=== PATIENT | female | born 1990 | race Caucasian/White ===

== ENCOUNTER 2018-09-16 20:16 | Inpatient (IN) ==
[2018-09-16] MEDS ORDERED: Sodium Chlor 0.9% Inj 500 ML IV.SIG PRN (23:02)
[2018-09-16] MEDS ORDERED: Sod Chloride 0.9% Inj 1,000 ML IV.CONT PRN (23:02)
[2018-09-16] MEDS ORDERED: fentaNYL Citrate Inj 100 MCG/2 ML Ampul IV.PUSH PRN (23:02)
[2018-09-16] MEDS ORDERED: Naloxone Inj 0.4 MG/ML Vial IV.PUSH PRN (23:02)
[2018-09-16] MEDS ORDERED: Oxytocin 30 Units/500ml Premix 30 UNITS/500 ML BAG IV.SIG ONE (23:02)
[2018-09-16] MEDS ORDERED: Citric Acid/Sodium Citrate Liq 30 ML UDC PO SCH (23:15)
[2018-09-16 23:16] LABS: Baso # (Auto) 0.1 th/mm3 (0.0-0.2); Baso % (Auto) 0.6 % (0.0-2.0); Eos % (Auto) 0.2 % (0.0-4.0); Hematocrit 38.3 % (35.0-46.0); Hemoglobin 12.8 gm/dL (11.6-15.3); Lymph # (Auto) 2.9 th/mm3 (1.0-4.8); Lymph % (Auto) 26.6 % (9.0-44.0); Mean Corpuscular HGB Conc 33.4 % (32.0-36.0); Mean Corpuscular Hemoglobin 28.8 pg (27.0-34.0); Mean Corpuscular Volume 86.4 fL (80.0-100.0); Mean Platelet Volume 9.6 fL (7.0-11.0); Mono # (Auto) 0.9 th/mm3 (0.0-0.9); Mono % (Auto) 8.2 % (0.0-8.0); Neut # (Auto) 7.1 th/mm3 (1.8-7.7); Neut % (Auto) 64.4 % (16.0-70.0); Platelet Count 228 th/mm3 (150-450); Red Blood Count 4.43 mil/mm3 (4.00-5.30); Red Cell Distribution Width 15.2 % (11.6-17.2)
--- NOTE | 2018-09-16 23:18 | P.HPOB ---
History of Present Illness Primary Care Physician: No Primary Care Physician Dr. Garo Segal Chief Complaint: Postdates induction History of Present Illness: Patient is a 28-year-old white female at 41 weeks tomorrow presents tonight for cervical ripening and induction for tomorrow for postdates. She denies any other complaints or problems. No bleeding, leakage, pain, records are available. NST is reactive and she is having occasional contraction tonight but not really feeling Weeks Gestation:: 41 Para: 0 : 3 Total # of Miscarriage(s): 1 Total # of Abortions (Spontaneous & Elective): 1 - Inpatient Certification I certify that the inpatient services were ordered in accordance with Medicare regulations governing the order. This includes certification that hospital inpatient services are reasonable and necessary and in the case of services not specified as inpatient-only under 42 CFR 419.22(n), that they are appropriately provided as inpatient services in accordance to with the 2-midnight benchmark under 43 CFR 412.3(e) Estimated Total Length of Stay (Days): 3 Plans for Post Hospital Care: Home Review of Systems All other systems reviewed negative except as stated in HPI PMFSH - Tobacco History Smoking Status: Smoker, status unknown Tobacco Type: Cigarettes - Alcohol History How Often Do You Have a Drink Containing Alcohol: Never - Substance Use History Substance History: No History of Abuse - Travel History History of Recent Travel: No Recent Travel in the [place] Within the Last 8 Weeks: No Recent Travel Out of the Country Within the Last 8 Weeks: No Medications and Allergies Active Medications: Active Medications Citric Acid/Sodium Citrate (Sodium Citrate/Citric Acid Liq) 30 ml PO TRANSCRIBING OPERATOR [facility] Stop: 09/20/18 23:14 Dinoprostone (Cervidil Vag Insert) 10 mg VAGINAL ONCE ONE Stop: 09/16/18 23:13 Fentanyl Citrate (Fentanyl Inj) 50 mcg IV.PUSH Q1H PRN PRN Reason: Pain Scale 3 - 5 Fentanyl Citrate (Fentanyl Inj) 100 mcg IV.PUSH Q1H PRN PRN Reason: PAIN SCALE 6 TO 10 Lactated Ringer's (Lr 1000 Ml Inj) 1,000 mls @ 3,000 mls/hr IV.SIG UNSCH PRN PRN Reason: compromise or epidural Lactated Ringer's (Lr 1000 Ml Inj) 1,000 mls @ 125 mls/hr IV.CONT .Q8H [facility] Sodium Chloride (Ns Inj) 500 mls @ 1,000 mls/hr IV.SIG UNSCH PRN PRN Reason: SEE LABEL COMMENTS Sodium Chloride (Ns Inj) 1,000 mls @ 100 mls/hr IV.CONT .Q10H PRN PRN Reason: SEE LABEL COMMENTS Oxytocin (Pitocin 30 Units/Ns 500 Ml Premix) 30 units in 500 mls @ 999 mls/hr IV.SIG BOLUS ONE Stop: 09/16/18 23:32 Lidocaine HCl (Xylocaine 1% Inj) 0.1 ml I-DERMAL PRN PRN PRN Reason: For IV start Stop: 09/19/18 23:01 Lidocaine HCl (Xylocaine 1% Inj) 10 ml INFILTRATN PRN PRN PRN Reason: For episiotomy repair Stop: 09/18/18 23:01 Mineral Oil (Muri-Lube Oil) 10 ml TOPICAL PRN PRN PRN Reason: PRN perineal massage Naloxone HCl (Narcan Inj) 0.1 mg IV.PUSH Q2M PRN PRN Reason: for opiate reversal Ondansetron HCl (Zofran Inj) 4 mg IV.PUSH Q6H PRN PRN Reason: NAUSEA OR VOMITING Sodium Chloride (Ns Flush) 2 ml IV.FLUSH BID MICHELLE Sodium Chloride (Ns Flush) 2 ml IV.FLUSH PRN PRN PRN Reason: FLUSH AFTER USING IV ACCESS Allergies Allergy/AdvReac Type Severity Reaction Status Date / Time No Known Allergies Allergy none Uncoded 09/16/18 23:12 Home Medications Medication Instructions Recorded Confirmed Type [id number] acid 1 tab PO DAILY 09/16/18 09/16/18 History [PreNata] Exam Vital signs: Vital Signs 09/16/18 22:15 Temperature 98.7 F Pulse Rate 71 Respiratory Rate 16 Blood Pressure 131/86 Intake & Output 09/16/18 09/16/18 09/17/18 06:59 18:59 06:59 Weight 57.153 kg Narrative: GENERAL: Well-nourished, well-developed patient. SKIN: Warm and dry. HEAD: Normocephalic and atraumatic. EYES: No scleral icterus. No injection or drainage. ENT: No nasal drainage noted. Mucous membranes pink. Airway patent. NECK: Supple, trachea midline. No JVD. CARDIOVASCULAR: Regular rate and rhythm without murmurs, gallops, or rubs. RESPIRATORY: Breath sounds equal bilaterally. No accessory muscle use. BREASTS: Bilateral exam showed no masses , no retractions, no nipple discharge. ABDOMEN/GI: Abdomen soft, non-tender, bowel sounds present, no rebound, no guarding Gravid to [40-] weeks size Fundal Height: [40-] GENITOURINARY: External Genitalia: intact and normal in appearance BUS glands: [-] Cervix: [-post] Dilatation: [1-2-] Effacement: [60-] Station: [-3] Presentation: [vtx-] Membranes: [intact ] Uterine Contractions: [occasional-] FHT's: Category: [1-] Baseline: [-133] Reactive: [-R] Variability: [-mod] Decels: [0-] EXTREMITIES: No cyanosis or edema. BACK: Nontender without obvious deformity. No CVA tenderness. NEUROLOGICAL: Awake and alert. Motor and sensory grossly within normal limits. Five out of 5 muscle strength in all muscle groups. Normal speech. Results - Labs CBC & Chem 7: 09/16/18 22:50 Caprini VTE Risk Assessment Caprini VTE Risk Assessment: No/Low Risk (score <= 1) Caprini Risk Assessment Model: Point Value = 1 Point Value = 2 Point Value = 3 Point Value = 5 Age 41-60 Minor surgery BMI > 25 kg/m2 Swollen legs Varicose veins or History of unexplained or recurrent spontaneous Oral contraceptives or hormone replacement Sepsis (< 1 month) Serious lung disease, including pneumonia (< 1 month) Abnormal pulmonary function Acute myocardial infarction Congestive heart failure (< 1 month) History of inflammatory bowel disease Medical patient at bed rest Age 61-74 Arthroscopic surgery Major open surgery (> 45 min) Laparoscopic surgery (> 45 min) Malignancy Confined to bed (> 72 hours) Immobilizing plaster cast Central venous access Age >= 75 History of VTE Family history of VTE Factor V Leiden Prothrombin [id number] Lupus anticoagulant Anticardiolipin antibodies Elevated serum homocysteine Heparin-induced thrombocytopenia Other congenital or acquired thrombophilia Stroke (< 1 month) Elective arthroplasty Hip, pelvis, or leg fracture Acute spinal cord injury (< 1 month) Prophylaxis Regimen: Total Risk Factor Score Risk Level Prophylaxis Regimen 0-1 Low Early ambulation 2 Moderate Order ONE of the following: *Sequential Compression Device (SCD) *Heparin 5000 units SQ BID 3-4 Higher Order ONE of the following medications: *Heparin 5000 units SQ TID *Enoxaparin/Lovenox 40 mg SQ daily (WT < 150 kg, CrCl > 30 mL/min) *Enoxaparin/Lovenox 30 mg SQ daily (WT < 150 kg, CrCl > 10-29 mL/min) *Enoxaparin/Lovenox 30 mg SQ BID (WT < 150 kg, CrCl > 30 mL/min) AND/OR *Sequential Compression Device (SCD) 5 or more Highest Order ONE of the following medications: *Heparin 5000 units SQ TID (Preferred with Epidurals) *Enoxaparin/Lovenox 40 mg SQ daily (WT < 150 kg, CrCl > 30 mL/min) *Enoxaparin/Lovenox 30 mg SQ daily (WT < 150 kg, CrCl > 10-29 mL/min) *Enoxaparin/Lovenox 30 mg SQ BID (WT < 150 kg, CrCl > 30 mL/min) AND *Sequential Compression Device (SCD) Assessment and Plan - Diagnosis (1) 41 weeks gestation of Code(s): Z3A.41 - 41 weeks gestation of Status: Acute (2) Post-dates Code(s): O48.0 - Post-term Status: Acute - Plan This primiparous patients 41 weeks tomorrow presents for postdates induction after cervical ripening tonight. NST is reactive and not contractions are noted to be regular anyway and she is in good condition and ready for induction. Cervix is 1-2 cm/60/-3/vertex. Plan to insert Cervidil the night and then tomorrow remove that and AROM with Pitocin
[2018-09-16 23:26] LABS: Bilirubin,Urine Negative (Negative); Clarity,Urine Clear (Clear); Color,Urine Straw (Yellw/Straw); Glucose,Urine (UA) Negative (Negative); Leukocyte Esterase,Urine Negative (Negative); Nitrite,Urine Negative (Negative); Specific Gravity,Urine 1.006 (1.002-1.035); Squamous Epithelial Cell,Urine 2 /hpf (0-5)
[2018-09-16 23:31] LABS: Amphetamine Urine With Conf Neg (Neg); Benzodiazepine Urine With Conf Neg (Neg)
[2018-09-17] MEDS: fentaNYL Citrate Inj 100 MCG/2 ML Ampul IV.PUSH PRN ×2 (02:53→04:20)
[2018-09-17] MEDS ORDERED: fentaNYL 2MCG-Bupiv 0.125% Epi 150 ML EPIDURAL ONE (04:30)
[2018-09-17] MEDS ORDERED: Lidocaaine 1.5%/Epinephrine 1:200,000 PF Inj 5 ML Amp ONE (04:31)
[2018-09-17] MEDS ORDERED: Lidocaine PF 1% Inj 5 ML Vial ONE (04:31)
[2018-09-17] MEDS ORDERED: fentaNYL Citrate Inj 100 MCG/2 ML Ampul EPIDURAL ONE (08:37)
[2018-09-17] MEDS ORDERED: fentaNYL 2MCG-Bupiv 0.125% Epi 150 ML EPIDURAL PRN (08:37)
[2018-09-17] MEDS ORDERED: Oxytocin 30 Units/500ml Premix 30 UNITS/500 ML BAG ONE (12:49)
--- NOTE | 2018-09-17 13:52 | P.OBLABOR ---
Subjective Interval history: As of this morning patient was feeling well with no new complaints. Epidural is in place. She is feeling significant pressure with her contractions. Objective Vital Signs: Vital Signs - 8 hr 09/17/18 05:55 09/17/18 06:05 09/17/18 06:20 Temperature Pulse Rate 82 73 71 Respiratory Rate Blood Pressure 107/63 104/59 L 100/53 L 09/17/18 06:30 09/17/18 06:55 09/17/18 07:00 Temperature Pulse Rate 74 69 73 Respiratory Rate Blood Pressure 105/58 L 98/52 L 100/54 L 09/17/18 07:05 09/17/18 07:40 09/17/18 07:45 Temperature 98.7 F Pulse Rate 87 80 80 Respiratory Rate 17 Blood Pressure 117/76 125/79 09/17/18 07:50 09/17/18 08:10 09/17/18 08:25 Temperature Pulse Rate 73 72 93 H Respiratory Rate Blood Pressure 111/75 127/84 09/17/18 08:40 09/17/18 09:00 09/17/18 09:20 Temperature Pulse Rate 81 75 Respiratory Rate 18 Blood Pressure 130/91 H 113/78 09/17/18 09:25 09/17/18 09:29 09/17/18 09:35 Temperature Pulse Rate 78 70 Respiratory Rate 17 Blood Pressure 107/67 09/17/18 09:40 09/17/18 09:50 09/17/18 09:55 Temperature 98.0 F Pulse Rate 74 75 81 Respiratory Rate 18 Blood Pressure 113/66 107/61 09/17/18 10:16 09/17/18 10:25 09/17/18 10:27 Temperature Pulse Rate 72 68 Respiratory Rate 17 Blood Pressure 97/59 L 09/17/18 10:50 09/17/18 11:40 09/17/18 12:15 Temperature Pulse Rate 75 90 63 Respiratory Rate 17 Blood Pressure 115/64 138/91 H 102/60 09/17/18 12:40 09/17/18 12:53 09/17/18 12:55 Temperature Pulse Rate 63 72 70 Respiratory Rate 18 Blood Pressure 102/58 L 132/78 09/17/18 13:25 09/17/18 13:50 Temperature Pulse Rate 63 68 Respiratory Rate Blood Pressure 128/80 109/85 Objective: Pelvic Exam: Dilatation: 5 Effacement: 90 Station: -1 Presentation: OP Membranes: ruptured Uterine Contractions: q3 minutes FHT's: Category: 2 Baseline: about 130 Reactive: little Variability: moderate Decels: recurrent variable with some late and early Assessment and Plan - Plan Labor progress: -AROM around 0800 today with IUPC placement - scalp electrode placed around 1345 -As of 1350 she had received amnioinfusion, LR bolus, repositioning and oxygen via non-rebreather with little improvement in FHTs. -Her decelerations have a slow return to baseline -There is significant concern about the severity of her current FHT -Will continue to monitor closely
[2018-09-17] MEDS ORDERED: ceFAZolin 2 GM Premix Inj 2 GM/100 ML BAG IV.SIG PRN (14:14)
[2018-09-17] MEDS ORDERED: Citric Acid/Sodium Citrate Liq 30 ML UDC PO SCH (14:15)
[2018-09-17] MEDS ORDERED: Ketorolac Inj 30 MG/ML (IVP) Vial IV.PUSH ONE (14:16)
[2018-09-17] MEDS ORDERED: Phenylephrine/NS 1000 MCG/10ML Syringe IV.PUSH ONE (14:16)
[2018-09-17] MEDS ORDERED: Lidocaine 2%/Epinephrine 1:200,000 PF Inj 20 ML Vial INFILTRATN ONE (14:16)
--- NOTE | 2018-09-17 14:18 | P.OBLABOR ---
Subjective Interval history: Pt with recurrent decels ranging from early to variable to late. RNs stated pt was 9-10cm. On exam, she is 4-5cm/90/+1. OP presentation. Unable to rotate fetus. Intolerance despite repositioning, O2, and amnioinfusion. R/B/A of were discussed with the patient. Specifically we reviewed risks of bleeding, infection, pain, injury to baby or internal organs/nerves/ vessels/structures. She voiced understanding, all questions were answered, and consents were signed. Orders have been placed, bicitra and antibiotics administered, SCDs and curtis placed, and RN/ANES/NICU/Charge notified. Objective Vital Signs: Vital Signs - 8 hr 09/17/18 06:20 09/17/18 06:30 09/17/18 06:55 Temperature Pulse Rate 71 74 69 Respiratory Rate Blood Pressure 100/53 L 105/58 L 98/52 L 09/17/18 07:00 09/17/18 07:05 09/17/18 07:40 Temperature Pulse Rate 73 87 80 Respiratory Rate Blood Pressure 100/54 L 117/76 09/17/18 07:45 09/17/18 07:50 09/17/18 08:10 Temperature 98.7 F Pulse Rate 80 73 72 Respiratory Rate 17 Blood Pressure 125/79 111/75 09/17/18 08:25 09/17/18 08:40 09/17/18 09:00 Temperature Pulse Rate 93 H 81 Respiratory Rate 18 Blood Pressure 127/84 130/91 H 09/17/18 09:20 09/17/18 09:25 09/17/18 09:29 Temperature Pulse Rate 75 78 Respiratory Rate 17 Blood Pressure 113/78 09/17/18 09:35 09/17/18 09:40 09/17/18 09:50 Temperature Pulse Rate 70 74 75 Respiratory Rate Blood Pressure 107/67 113/66 09/17/18 09:55 09/17/18 10:16 09/17/18 10:25 Temperature 98.0 F Pulse Rate 81 72 68 Respiratory Rate 18 Blood Pressure 107/61 97/59 L 09/17/18 10:27 09/17/18 10:50 09/17/18 11:40 Temperature Pulse Rate 75 90 Respiratory Rate 17 Blood Pressure 115/64 138/91 H 09/17/18 12:15 09/17/18 12:40 09/17/18 12:53 Temperature Pulse Rate 63 63 72 Respiratory Rate 17 18 Blood Pressure 102/60 102/58 L 132/78 09/17/18 12:55 09/17/18 13:25 09/17/18 13:50 Temperature Pulse Rate 70 63 68 Respiratory Rate Blood Pressure 128/80 109/85 09/17/18 13:55 09/17/18 14:05 Temperature Pulse Rate 59 L 64 Respiratory Rate Blood Pressure 129/87 Objective: Pelvic Exam: Cervix: [-] Dilatation: [-] Effacement: [-] Station: [-] Presentation: [-] Membranes: [intact or ruptured] Uterine Contractions: [-] FHT's: Category: [-] Baseline: [-] Reactive: [-] Variability: [-] Decels: [-] Assessment and Plan - Diagnosis (1) 41 weeks gestation of Code(s): Z3A.41 - 41 weeks gestation of Status: Acute (2) Post-dates Code(s): O48.0 - Post-term Status: Acute - Plan This primiparous patients 41 weeks tomorrow presents for postdates induction after cervical ripening tonight. NST is reactive and not contractions are noted to be regular anyway and she is in good condition and ready for induction. Cervix is 1-2 cm/60/-3/vertex. Plan to insert Cervidil the night and then tomorrow remove that and AROM with Pitocin
[2018-09-17] MEDS ORDERED: Morphine Sulfate PF Inj 5 MG/10 ML Ampul ONE (14:39)
[2018-09-17 14:46] LABS: Cord Arterial Blood HCO3 23.6
[2018-09-17] MEDS ORDERED: Oxytocin 30 Units/500ml Premix 30 UNITS/500 ML BAG IV.SIG ONE (15:39)
[2018-09-17] MEDS ORDERED: Simethicone 80 MG Chew Tablet PO PRN (15:39)
--- NOTE | 2018-09-17 15:58 | XR ---
EXAM DATE: 09/17/2018 2:29 PM EDT AGE/SEX: 28 years / Female INDICATIONS: Instrument count, emergency . CLINICAL DATA: This is the patient's initial encounter. Patient reports that signs and symptoms have been present for 1 day and indicates a pain score of Nonresponsive. MEDICAL/SURGICAL HISTORY: Non-responsive. Non-responsive. COMPARISON: No prior exams available for comparison. FINDINGS: Examination of the abdomen demonstrates gas-filled loops of nondilated large and small bowel. There i s a suggestion of displacement of bowel loops out of the pelvis. No free air is identified. No organ omegaly is evident. Osseous structures are intact. CONCLUSION: Gas-filled loops of nondilated large and small bowel. There is the suggestion of displacement of carlos l loops out of the pelvis concerning for possible mass. CT scan suggested. Electronically signed by: Garrick Wymna MD 09/17/2018 3:57 PM EDT
[2018-09-17] MEDS ORDERED: ceFAZolin Inj 2,000 MG in Sodium Chlor 0.9% Inj 80 ML IV.SIG SCH (16:00)
--- NOTE | 2018-09-17 16:06 | P.OP ---
- Preoperative Diagnosis (1) Non-reassuring electronic monitoring tracing (2) 41 weeks gestation of (3) Post-dates - Postoperative Diagnosis (1) 41 weeks gestation of (2) Post-dates (3) Non-reassuring electronic monitoring tracing Date of procedure: 09/17/18 Procedure: 1' LTCS MICKI Anesthesia: epidural Surgeon: Kiera Mojica MD Estimated blood loss (mL): 200 IV fluids (mL): 1,000 Urine output (mL): 250 Pathology: other Operation and Findings: Antibiotics: 2g ancef prior to skin incision DVT prophylaxis: SCDs were in place and active throughout the entire procedure EBL: 200cc IVF: 1000cc UOP: 250cc Drain(s): Reyes to straight drain Specimen(s): cord blood, cord gas, uterine adhesions Findings: HR in OR 90s, vtx male delivered at 14:26, 9/9 APGARs, wt 6lbs 14oz, pH (venous) 7.380; filmy adhesions covering uterus/ovaries/adnexa, omental adhesions to R ovary; normal appendix Complications: superficial laceration to L presybeterian of baby Disposition: to PACU in stable condition Indication: 28y/o @ 41.0wks with NRFHTs remote from delivery, refractory to intervention. Technique: The R/B/A were discussed with the pt, all questions answered, and consents signed. The pt was taken to the operating room where epidural anesthesia was found to be adequate. She was splashed with betadine and draped in the normal sterile fashion in the dorsal supine position with leftward tilt. A Pfannenstiel skin incision was made with the scalpel and carried through to the underlying layer of fascia. The fascia was incised in the midline and the incision extended bluntly. The rectus muscles were in the midline, and the peritoneum identified and entered bluntly. The peritoneal incision was stretched with good visualization of the bladder. The bladder blade was inserted and the vesicouterine peritoneum identified, grasped with pick-ups, and entered sharply with Metzenbaum scissors. This incision was extended laterally and a bladder flap created digitally. The bladder blade was then reinserted and the lower uterine segment incised in a transverse fashion with the scalpel. The uterine incision was stretched superiorly and inferiorly. The bladder blade was removed and the infant's head delivered atraumatically followed by the body. Delayed cord clamping ensued for 45sec while the was dried, suctioned, and stimulated. The cord was double clamped and cut and infant handed off to the waiting team. The placenta expelled with manual fundal massage. The uterus was exteriorized and cleared of all clots and debris. The uterine incision was repaired with 0- vicryl in a running, locked fashion. A second layer using 0-monocryl suture was used to obtain excellent hemostasis via embrication. Filmy adhesions were removed from the ovaries/uterus and samples sent to pathology. A suspected R endometrioma encapsulating the fimbria was drained and fimbriolysis performed. Omental adhesions were released and free tied for hemostasis. The posterior cul-de-sac was suctioned and the uterus was returned to the abdomen. The gutters were cleared of all clots and debris. The peritoneum was reapproximated with 3-0 vicryl in a running fashion. The underneath fascia was inspected and found to be hemostatic. The fascia was closed with 0-vicryl in a running fashion. The subcutaneous tissue was irrigated with saline and made hemostatic with the Bovie. The subcutaneous layer was reapproximated with plain gut with simple interrupted stitches. At this point, given the emergent nature of the procedure and the lack of preoperative instrument counts, an xray was performed. Once deemed negative, the skin was closed with 4-0 monocryl. Steristrips were placed and the incision dressed appropriately. The patient tolerated the procedure well. She was taken to the recovery room in stable condition. Both the patient and FOB were debriefed on the case. Decision to incision time: 12 minutes
[2018-09-17] MEDS ORDERED: Naloxone Inj 0.4 MG/ML Vial IV.PUSH PRN (16:53)
[2018-09-17] MEDS ORDERED: Oxytocin 30 Units/500ml Premix 30 UNITS/500 ML BAG IV.SIG PRN (20:39)
[2018-09-17] MEDS: ceFAZolin 2 GM Premix Inj 2 GM/50 ML PIGGYBACK IV.SIG SCH (22:29)
[2018-09-18] MEDS: ceFAZolin 2 GM Premix Inj 2 GM/50 ML PIGGYBACK IV.SIG SCH (05:57)
--- NOTE | 2018-09-18 08:42 | P.PNOB ---
Subjective Post op day: 2 Interval history: Patient's pain is well-controlled. Patient reports eating and drinking without any nausea or vomiting. Patient reports minimal bleeding. Patient has passed gas but no bowel movements. Patient is walking without lower extremity pain or shortness of breath. Objective Vital Signs/I&O: Vital Signs 09/17/18 09:00 09/17/18 09:20 09/17/18 09:25 Temperature Pulse Rate 75 78 Respiratory Rate 18 Blood Pressure 113/78 09/17/18 09:29 09/17/18 09:35 09/17/18 09:40 Temperature Pulse Rate 70 74 Respiratory Rate 17 Blood Pressure 107/67 09/17/18 09:50 09/17/18 09:55 09/17/18 10:16 Temperature 98.0 F Pulse Rate 75 81 72 Respiratory Rate 18 Blood Pressure 113/66 107/61 97/59 L 09/17/18 10:25 09/17/18 10:27 09/17/18 10:50 Temperature Pulse Rate 68 75 Respiratory Rate 17 Blood Pressure 115/64 09/17/18 11:40 09/17/18 12:15 09/17/18 12:40 Temperature Pulse Rate 90 63 63 Respiratory Rate 17 Blood Pressure 138/91 H 102/60 102/58 L 09/17/18 12:53 09/17/18 12:55 09/17/18 13:25 Temperature Pulse Rate 72 70 63 Respiratory Rate 18 Blood Pressure 132/78 128/80 09/17/18 13:50 09/17/18 13:55 09/17/18 14:05 Temperature Pulse Rate 68 59 L 64 Respiratory Rate Blood Pressure 109/85 129/87 09/17/18 15:35 09/17/18 15:49 09/17/18 15:50 Temperature 97.6 F Pulse Rate 88 77 Respiratory Rate 20 35 H Blood Pressure 124/64 84/56 L 91/58 L 09/17/18 16:01 09/17/18 16:20 09/17/18 16:28 Temperature Pulse Rate 90 70 72 Respiratory Rate 30 H 18 16 Blood Pressure 95/64 L 117/66 09/17/18 16:30 09/17/18 17:02 09/17/18 20:00 Temperature 98.2 F 98.3 F Pulse Rate 73 55 L Respiratory Rate 18 17 Blood Pressure 125/74 132/79 135/76 09/18/18 00:00 09/18/18 04:00 Temperature 98.3 F 98.1 F Pulse Rate 57 L 58 L Respiratory Rate 18 18 Blood Pressure 151/84 H 121/76 Intake & Output 09/17/18 09/18/18 09/18/18 18:59 06:59 18:59 Intake Total 1050 / 1050 850 / 850 Balance 1050 / 1050 850 / 850 Intake: IV 1050 / 1050 850 / 850 LR 1000 mL Inj 1,000 ML @ 100 1000 / 1000 800 / 800 mls/hr IV.CONT .Q10H [facility] Rx#: [id number] Ancef 2 GM Premix Inj 2 gm In 50 / 50 50 / 50 50 ml @ 100 mls/hr IV.SIG Q8H [facility] Rx#:[id number] Result Diagrams: 09/16/18 22:50 Objective Remarks: GENERAL: Well-nourished, well-developed patient. CARDIOVASCULAR: Regular rate and rhythm without murmurs, gallops, or rubs. RESPIRATORY: Breath sounds equal bilaterally. No accessory muscle use. ABDOMEN/GI: Abdomen soft, non-tender, bowel sounds present. Incision: Clean, dry and intact. Fundus: Firm, non-tender at umbilicus. GENITOURINARY: Light to moderate bleeding. EXTREMITIES: No cyanosis or edema, non-tender, without signs of DVT. Medications and IVs: Active Medications Citric Acid/Sodium Citrate (Sodium Citrate/Citric Acid Liq) 30 ml PO TAX SENIOR ASSOCIATE [facility] Stop: 09/20/18 23:14 Citric Acid/Sodium Citrate (Sodium Citrate/Citric Acid Liq) 30 ml PO TAX SENIOR ASSOCIATE [facility] Stop: 09/21/18 14:14 Diphenhydramine HCl (Benadryl Inj) 25 mg IV.PUSH Q6H PRN PRN Reason: MILD TO MODERATE ITCHING Stop: 09/18/18 16:52 Diphenhydramine HCl (Benadryl) 50 mg PO Q6H PRN PRN Reason: MILD TO MODERATE ITCHING Stop: 09/18/18 16:52 Diphtheria/Pertussis/Tetanus Vacc (Boostrix Vaccine Inj) 0.5 ml IM .ONCE ONE Stop: 09/18/18 16:01 Fentanyl Citrate (Fentanyl Inj) 50 mcg IV.PUSH Q1H PRN PRN Reason: Pain Scale 3 - 5 Last Admin: 09/17/18 04:20 Dose: 50 mcg Fentanyl Citrate (Fentanyl Inj) 100 mcg IV.PUSH Q1H PRN PRN Reason: PAIN SCALE 6 TO 10 Last Admin: 09/17/18 04:20 Dose: 100 mcg Lactated Ringer's (Lr 1000 Ml Inj) 1,000 mls @ 3,000 mls/hr IV.SIG UNSCH PRN PRN Reason: compromise or epidural Last Admin: 09/17/18 04:56 Dose: 3,000 mls/hr Sodium Chloride (Ns Inj) 500 mls @ 1,000 mls/hr IV.SIG UNSCH PRN PRN Reason: SEE LABEL COMMENTS Sodium Chloride (Ns Inj) 1,000 mls @ 100 mls/hr IV.CONT .Q10H PRN PRN Reason: SEE LABEL COMMENTS Fentanyl/Bupivacaine/Sodium Chlor (Fentanyl 2 Mcg-Bupiv 0.125% Epi) 150 mls @ 8 mls/hr EPIDURAL PRN PRN PRN Reason: for Labor Pain Lactated Ringer's (Lr 1000 Ml Inj) 1,000 mls @ 100 mls/hr IV.CONT .Q10H [facility] Stop: 09/18/18 16:38 Last Admin: 09/18/18 07:23 Dose: Not Given Oxytocin (Pitocin 30 Units/Ns 500 Ml Premix) 30 units in 500 mls @ 100 mls/hr IV.SIG UNSCH PRN PRN Reason: Heavy bleeding Ibuprofen (Motrin) 800 mg PO Q8H PRN PRN Reason: cramping Ketorolac Tromethamine (Toradol Inj) 30 mg IM Q6H PRN PRN Reason: SEE LABEL COMMENTS Lidocaine HCl (Xylocaine 1% Inj) 0.1 ml I-DERMAL PRN PRN PRN Reason: For IV start Stop: 09/19/18 23:01 Lidocaine HCl (Xylocaine 1% Inj) 10 ml INFILTRATN PRN PRN PRN Reason: For episiotomy repair Stop: 09/18/18 23:01 Measles/Mumps/Rubella Vaccine Live (M-M-R Ii Vaccine Inj) 0.5 ml SQ .ONCE ONE Stop: 09/18/18 16:01 Mineral Oil (Muri-Lube Oil) 10 ml TOPICAL PRN PRN PRN Reason: PRN perineal massage Miscellaneous Information (Misc Nursing Information) 1 each OTHER UNSCH PRN PRN Reason: SEE LABEL COMMENTS Stop: 09/18/18 16:52 Miscellaneous Information [place] [place] 1 each OTHER UNSCH PRN PRN Reason: SEE LABEL COMMENTS Stop: 09/18/18 16:52 Naloxone HCl (Narcan Inj) 0.1 mg IV.PUSH Q2M PRN PRN Reason: for opiate reversal Naloxone HCl (Narcan Inj) 0.4 mg IV.PUSH UNSCH PRN PRN Reason: SEE LABEL COMMENTS Stop: 09/18/18 16:52 Ondansetron HCl (Zofran Inj) 4 mg IV.PUSH Q6H PRN PRN Reason: NAUSEA OR VOMITING Oxycodone/Acetaminophen (Percocet 5/325 Mg) 1 tab PO Q4H PRN PRN Reason: PAIN SCALE 3 TO 5 Oxycodone/Acetaminophen (Percocet 5/325 Mg) 2 tab PO Q4H PRN PRN Reason: PAIN SCALE 6 TO 10 Senna/Docusate Sodium (Charmaine-Colace) 2 tab PO Q12H PRN PRN Reason: CONSTIPATION Simethicone (Mylicon Chew) 80 mg PO QID PRN PRN Reason: FLATULENCE Sodium Chloride (Ns Flush) 2 ml IV.FLUSH BID IMCHELLE Last Admin: 09/18/18 06:04 Dose: Not Given Sodium Chloride (Ns Flush) 2 ml IV.FLUSH PRN PRN PRN Reason: FLUSH AFTER USING IV ACCESS Assessment and Plan - Plan 28.-year-old female, came in for scheduled induction at 41 weeks had category 2 tracing, was taken for stat yesterday. Now postop day #1 Patient was counseled to do 6 weeks of pelvic rest. Patient was counseled to follow up in 6 weeks. Patient requested follow-up and contraception. --AF VSS --Continue routine care --Motrin and Percocet when necessary for pain --Encourage OOB --Pelvic rest for 6 weeks will need follow-up appointment at that time. --Contraception: We will continue to consider --Anticipate discharge tomorrow or Thursday
[2018-09-18 09:39] LABS: Baso % (Auto) 0.2 % (0.0-2.0); Eos % (Auto) 0.1 % (0.0-4.0); Hematocrit 26.9 % (35.0-46.0); Hemoglobin 9.1 gm/dL (11.6-15.3); Lymph # (Auto) 2.5 th/mm3 (1.0-4.8); Lymph % (Auto) 16.8 % (9.0-44.0); Mean Corpuscular HGB Conc 33.9 % (32.0-36.0); Mean Corpuscular Hemoglobin 29.6 pg (27.0-34.0); Mean Corpuscular Volume 87.4 fL (80.0-100.0); Mean Platelet Volume 9.1 fL (7.0-11.0); Mono # (Auto) 0.9 th/mm3 (0.0-0.9); Mono % (Auto) 6.4 % (0.0-8.0); Neut # (Auto) 11.3 th/mm3 (1.8-7.7); Neut % (Auto) 76.5 % (16.0-70.0); Platelet Count 142 th/mm3 (150-450); Red Blood Count 3.08 mil/mm3 (4.00-5.30); Red Cell Distribution Width 15.7 % (11.6-17.2); White Blood Count 14.8 th/mm3 (4.0-11.0)
[2018-09-18] MEDS: Senna/Docusate Sodium 8.6/50 MG Tablet PO PRN (11:05)
[2018-09-18] MEDS ORDERED: Measles/Mumps/Rubella Vaccine Inj 0.5 ML Vial SQ ONE (16:00)
[2018-09-18] MEDS ORDERED: Diphtheria/Tetanus/Pertussis Vaccine Inj 0.5 ML Syringe IM ONE (16:00)
[2018-09-18] MEDS ORDERED: Influenza (Quadrivalent) Vaccine 0.5 ML Syringe IM ONE (21:00)
[2018-09-19] MEDS: Senna/Docusate Sodium 8.6/50 MG Tablet PO PRN (02:57)
--- NOTE | 2018-09-19 09:17 | P.PNOB ---
Subjective Post op day: 2 Interval history: Patient is a 28-year-old delivered at 41 weeks. Patient is day 2 after c/s. Patient's pain is well-controlled. Patient reports minimal bleeding. Patient reports eating and drinking without any nausea or vomiting. Patient has passed gas but has not had a bowel movement. Patient denies chest pain and shortness of breath. Patient has been ambulating; she denies lower extremity pain. Patient reports desire for contraception, which she will discuss with her PCP at her first follow-up visit. Patient has decided to breast-feed. Objective Vital Signs/I&O: Vital Signs 09/18/18 12:00 09/18/18 19:42 Temperature 98.2 F 98.0 F Pulse Rate 63 64 Respiratory Rate 20 18 Blood Pressure 98/66 L 105/66 Result Diagrams: 09/18/18 09:21 Objective Remarks: GENERAL: Well-nourished, well-developed patient. CARDIOVASCULAR: Regular rate and rhythm without murmurs, gallops, or rubs. RESPIRATORY: Breath sounds equal bilaterally. No accessory muscle use. ABDOMEN/GI: Abdomen soft, non-tender, bowel sounds present. Incision: Clean, dry and intact. Fundus: Firm, non-tender at umbilicus. GENITOURINARY: Light to moderate bleeding. EXTREMITIES: No cyanosis or edema, non-tender, without signs of DVT. Medications and IVs: Active Medications Citric Acid/Sodium Citrate (Sodium Citrate/Citric Acid Liq) 30 ml PO [facility] Stop: 09/20/18 23:14 Citric Acid/Sodium Citrate (Sodium Citrate/Citric Acid Liq) 30 ml PO [facility] Stop: 09/21/18 14:14 Fentanyl Citrate (Fentanyl Inj) 50 mcg IV.PUSH Q1H PRN PRN Reason: Pain Scale 3 - 5 Last Admin: 09/17/18 04:20 Dose: 50 mcg Fentanyl Citrate (Fentanyl Inj) 100 mcg IV.PUSH Q1H PRN PRN Reason: PAIN SCALE 6 TO 10 Last Admin: 09/17/18 04:20 Dose: 100 mcg Lactated Ringer's (Lr 1000 Ml Inj) 1,000 mls @ 3,000 mls/hr IV.SIG UNSCH PRN PRN Reason: compromise or epidural Last Admin: 09/17/18 04:56 Dose: 3,000 mls/hr Sodium Chloride (Ns Inj) 500 mls @ 1,000 mls/hr IV.SIG UNSCH PRN PRN Reason: SEE LABEL COMMENTS Sodium Chloride (Ns Inj) 1,000 mls @ 100 mls/hr IV.CONT .Q10H PRN PRN Reason: SEE LABEL COMMENTS Fentanyl/Bupivacaine/Sodium Chlor (Fentanyl 2 Mcg-Bupiv 0.125% Epi) 150 mls @ 8 mls/hr EPIDURAL PRN PRN PRN Reason: for Labor Pain Oxytocin (Pitocin 30 Units/Ns 500 Ml Premix) 30 units in 500 mls @ 100 mls/hr IV.SIG UNSCH PRN PRN Reason: Heavy bleeding Ibuprofen (Motrin) 800 mg PO Q8H PRN PRN Reason: cramping Last Admin: 09/19/18 02:57 Dose: 800 mg Ketorolac Tromethamine (Toradol Inj) 30 mg IM Q6H PRN PRN Reason: SEE LABEL COMMENTS Lidocaine HCl (Xylocaine 1% Inj) 0.1 ml I-DERMAL PRN PRN PRN Reason: For IV start Stop: 09/19/18 23:01 Mineral Oil (Muri-Lube Oil) 10 ml TOPICAL PRN PRN PRN Reason: PRN perineal massage Naloxone HCl (Narcan Inj) 0.1 mg IV.PUSH Q2M PRN PRN Reason: for opiate reversal Ondansetron HCl (Zofran Inj) 4 mg IV.PUSH Q6H PRN PRN Reason: NAUSEA OR VOMITING Oxycodone/Acetaminophen (Percocet 5/325 Mg) 1 tab PO Q4H PRN PRN Reason: PAIN SCALE 3 TO 5 Last Admin: 09/19/18 02:57 Dose: 1 tab Oxycodone/Acetaminophen (Percocet 5/325 Mg) 2 tab PO Q4H PRN PRN Reason: PAIN SCALE 6 TO 10 Senna/Docusate Sodium (Charmaine-Colace) 2 tab PO Q12H PRN PRN Reason: CONSTIPATION Last Admin: 09/19/18 02:57 Dose: 2 tab Simethicone (Mylicon Chew) 80 mg PO QID PRN PRN Reason: FLATULENCE Sodium Chloride (Ns Flush) 2 ml IV.FLUSH BID MICHELLE Last Admin: 09/19/18 08:42 Dose: Not Given Sodium Chloride (Ns Flush) 2 ml IV.FLUSH PRN PRN PRN Reason: FLUSH AFTER USING IV ACCESS Assessment and Plan - Plan Patient is a 28-year-old delivered at 41 weeks. Patient is day 2 after c/s. Continue routine care. Motrin and Percocet when necessary for pain. Encourage OOB. Incision check in 1 week. Pelvic rest for 6 weeks will need follow-up appointment at that time. Contraception: To discuss with OB provider. Anticipate discharge today. jessica OB hospitalist
--- NOTE | 2018-09-19 09:24 | P.PNOB ---
Subjective Post op day: 2 Interval history: Patient is a 28-year-old delivered at 41 weeks. Patient is day 2 after c/s. Patient's pain is well-controlled. Patient reports minimal bleeding. Patient reports eating and drinking without any nausea or vomiting. Patient has passed gas but has not had a bowel movement. Patient denies chest pain and shortness of breath. Patient has been ambulating; she denies lower extremity pain. Patient reports desire for contraception, which she will discuss with her PCP at her first follow-up visit. Patient has decided to breast-feed. Objective Vital Signs/I&O: Vital Signs 09/18/18 12:00 09/18/18 19:42 Temperature 98.2 F 98.0 F Pulse Rate 63 64 Respiratory Rate 20 18 Blood Pressure 98/66 L 105/66 Result Diagrams: 09/18/18 09:21 Objective Remarks: GENERAL: Well-nourished, well-developed patient. CARDIOVASCULAR: Regular rate and rhythm without murmurs, gallops, or rubs. RESPIRATORY: Breath sounds equal bilaterally. No accessory muscle use. ABDOMEN/GI: Abdomen soft, non-tender, bowel sounds present. Incision: Clean, dry and intact. Fundus: Firm, non-tender at umbilicus. GENITOURINARY: Light to moderate bleeding. EXTREMITIES: No cyanosis or edema, non-tender, without signs of DVT. Medications and IVs: Active Medications Citric Acid/Sodium Citrate (Sodium Citrate/Citric Acid Liq) 30 ml PO [facility] Stop: 09/20/18 23:14 Citric Acid/Sodium Citrate (Sodium Citrate/Citric Acid Liq) 30 ml PO [facility] Stop: 09/21/18 14:14 Fentanyl Citrate (Fentanyl Inj) 50 mcg IV.PUSH Q1H PRN PRN Reason: Pain Scale 3 - 5 Last Admin: 09/17/18 04:20 Dose: 50 mcg Fentanyl Citrate (Fentanyl Inj) 100 mcg IV.PUSH Q1H PRN PRN Reason: PAIN SCALE 6 TO 10 Last Admin: 09/17/18 04:20 Dose: 100 mcg Lactated Ringer's (Lr 1000 Ml Inj) 1,000 mls @ 3,000 mls/hr IV.SIG UNSCH PRN PRN Reason: compromise or epidural Last Admin: 09/17/18 04:56 Dose: 3,000 mls/hr Sodium Chloride (Ns Inj) 500 mls @ 1,000 mls/hr IV.SIG UNSCH PRN PRN Reason: SEE LABEL COMMENTS Sodium Chloride (Ns Inj) 1,000 mls @ 100 mls/hr IV.CONT .Q10H PRN PRN Reason: SEE LABEL COMMENTS Fentanyl/Bupivacaine/Sodium Chlor (Fentanyl 2 Mcg-Bupiv 0.125% Epi) 150 mls @ 8 mls/hr EPIDURAL PRN PRN PRN Reason: for Labor Pain Oxytocin (Pitocin 30 Units/Ns 500 Ml Premix) 30 units in 500 mls @ 100 mls/hr IV.SIG UNSCH PRN PRN Reason: Heavy bleeding Ibuprofen (Motrin) 800 mg PO Q8H PRN PRN Reason: cramping Last Admin: 09/19/18 02:57 Dose: 800 mg Ketorolac Tromethamine (Toradol Inj) 30 mg IM Q6H PRN PRN Reason: SEE LABEL COMMENTS Lidocaine HCl (Xylocaine 1% Inj) 0.1 ml I-DERMAL PRN PRN PRN Reason: For IV start Stop: 09/19/18 23:01 Mineral Oil (Muri-Lube Oil) 10 ml TOPICAL PRN PRN PRN Reason: PRN perineal massage Naloxone HCl (Narcan Inj) 0.1 mg IV.PUSH Q2M PRN PRN Reason: for opiate reversal Ondansetron HCl (Zofran Inj) 4 mg IV.PUSH Q6H PRN PRN Reason: NAUSEA OR VOMITING Oxycodone/Acetaminophen (Percocet 5/325 Mg) 1 tab PO Q4H PRN PRN Reason: PAIN SCALE 3 TO 5 Last Admin: 09/19/18 02:57 Dose: 1 tab Oxycodone/Acetaminophen (Percocet 5/325 Mg) 2 tab PO Q4H PRN PRN Reason: PAIN SCALE 6 TO 10 Senna/Docusate Sodium (Charmaine-Colace) 2 tab PO Q12H PRN PRN Reason: CONSTIPATION Last Admin: 09/19/18 02:57 Dose: 2 tab Simethicone (Mylicon Chew) 80 mg PO QID PRN PRN Reason: FLATULENCE Sodium Chloride (Ns Flush) 2 ml IV.FLUSH BID MICHELLE Last Admin: 09/19/18 08:42 Dose: Not Given Sodium Chloride (Ns Flush) 2 ml IV.FLUSH PRN PRN PRN Reason: FLUSH AFTER USING IV ACCESS Assessment and Plan - Diagnosis (1) 41 weeks gestation of Code(s): Z3A.41 - 41 weeks gestation of Status: Acute (2) Post-dates Code(s): O48.0 - Post-term Status: Acute (3) Delivery by emergency section Code(s): O82 - Encounter for delivery without indication Status: Acute - Plan Patient is a 28-year-old delivered at 41 weeks. Patient is day 2 after c/s. Continue routine care. Motrin and Percocet when necessary for pain. Encourage OOB. Incision check in 1 week. Pelvic rest for 6 weeks will need follow-up appointment at that time. Contraception: To discuss with OB provider. Anticipate discharge today. jessica OB hospitalist
[2018-09-19 10:00] VITALS: BP 118/85
[2018-09-19 10:01] VITALS: PULSE 53; RESP 16; TEMP 98.2
== END 2018-09-19 12:23 | disposition home or self-care (01) ==
LOC: H2E 21:29 → H1EA 09-17 17:07
PROVIDERS: ADMIT Obstetrics & Gynecology Maternal & Fetal Medicine; ATTEND Obstetrics & Gynecology Maternal & Fetal Medicine